=== PATIENT | female | born 1945 | race Caucasian/White ===

== ENCOUNTER → 2016-11-27 | Outpatient (CLI) | payer MEDICARE, OTHER | END | disposition home or self-care (01) | LOC: PCVCIMAG 08:34 | PROVIDERS: ATTEND Internal Medicine Cardiovascular Disease | DX: I70.1 Atherosclerosis of renal artery (principal); I71.4 Abdominal aortic aneurysm, without rupture; I10 Essential (primary) hypertension; E78.00 Pure hypercholesterolemia, unspecified; I25.10 Atherosclerotic heart disease of native coronary artery without angina pectoris; F17.210 Nicotine dependence, cigarettes, uncomplicated; J44.9 Chronic obstructive pulmonary disease, unspecified; Z90.49 Acquired absence of other specified parts of digestive tract; Z90.711 Acquired absence of uterus with remaining cervical stump | CPT/HCPCS: 76770; 93005; 93975; 93978; G0463 ==